=== PATIENT | female | born 1965 | race Caucasian/White ===

== ENCOUNTER → 2017-04-18 | Outpatient (CLI) | payer SELFPAY | END | disposition home or self-care (01) | LOC: RAD 14:19 | DX: M47.892 Other spondylosis, cervical region (principal); M47.896 Other spondylosis, lumbar region; M19.012 Primary osteoarthritis, left shoulder; M51.37 Other intervertebral disc degeneration, lumbosacral region; M79.602 Pain in left arm; M54.5 Low back pain; M53.82 Other specified dorsopathies, cervical region | CPT/HCPCS: 72040; 72100; 73030 ==

== ENCOUNTER 2017-11-28 16:24 | Emergency (ER) | payer OTHER ==
[~2017-11-28] VITALS: Ht 160 cm; Wt 59.5 kg
[2017-11-28] MEDS ORDERED: MOTRIN600 MG PO (17:54)
[2017-11-28] MEDS ORDERED: FLEXERIL10 MG PO (17:54)
[2017-11-28 18:13] VITALS: BP 152/81
== END 2017-11-28 18:14 | disposition home or self-care (01) ==
LOC: EME 16:24
DX: R07.89 Other chest pain (principal); R05 Cough; M54.9 Dorsalgia, unspecified
CPT/HCPCS: 71046; 99281; 99284

== ENCOUNTER → 2018-02-02 | Outpatient (CLI) | payer SELFPAY ==
[~2018-02-02] MED LIST: FLEXERIL10 MG PO; MOTRIN600 MG PO
== END | disposition home or self-care (01) ==
LOC: RAD 09:00
DX: R10.11 Right upper quadrant pain (principal)
CPT/HCPCS: 76705